=== PATIENT | male | born 1960 | race Hispanic/Latino ===

== ENCOUNTER 2020-04-22 17:14 | Inpatient (IN) | payer SELFPAY ==
[~2020-04-22] VITALS: Ht 157.5 cm; Wt 60.4 kg
[2020-04-22 18:55] VITALS: BP 135/79
[2020-04-22 20:13] LABS: HEMATOCRIT 41.8 % (42-54); MEAN CORPUSCULAR HEMOGLOBIN 28.1 pg (27.0-33.0); MEAN CORPUSCULAR HGB CONC 33.3 g/dL (32.0-36.0); MEAN CORPUSCULAR VOLUME 84.6 fL (79-99); RED BLOOD CELL COUNT(AUTO) 4.94 MIL/uL (4.50-6.20); WHITE BLOOD COUNT (AUTO) 8.2 K/uL (4.8-10.8)
[2020-04-22 20:23] LABS: CREATININE 1.2 mg/dL (0.5-1.5); POTASSIUM 3.9 mmol/L (3.5-5.1)
[2020-04-22 20:25] LABS: INR 0.99 (0.85-1.15); PROTHROMBIN TIME 10.7 SEC (9.6-11.6)
[2020-04-22 20:27] LABS: ALBUMIN 3.3 g/dL (3.5-5.0); BILIRUBIN,TOTAL 0.4 mg/dL (0.2-1.0); MAGNESIUM 2.3 mg/dL (1.80-2.40); TOTAL PROTEIN, SERUM 6.6 g/dL (6.0-8.3)
[2020-04-22] MEDS ORDERED: ONDANSETRON HCL 4 MG/2 ML VIAL IV PRN (20:30)
[2020-04-22] MEDS ORDERED: HYDRALAZINE HCL 20 MG/ML VIAL IV PRN (20:30)
[2020-04-22] MEDS ORDERED: NITROGLYCERIN 0.4 MG SL TAB SL PRN (20:30)
[2020-04-22] MEDS ORDERED: LACTULOSE 20 GM/30 ML UDCUP PO PRN (20:30)
[2020-04-22] MEDS ORDERED: MORPHINE SULFATE 2 MG/ML 1ML SYG IV PRN (20:30)
[2020-04-22] MEDS ORDERED: ACETAMINOPHEN 325 MG TAB PO PRN ×2 (20:30)
[2020-04-22 21:16] LABS: TROPONIN I 0.57 ng/mL (0.00-0.06)
[2020-04-22 21:24] LABS: HEMOGLOBIN A1C 5.7 % (4.0-6.0)
[2020-04-22] MEDS: FAMOTIDINE 20MG TAB 20 MG TAB PO SCH (21:36)
[2020-04-22] MEDS: SODIUM CHLORIDE 0.9% 1000ML 1,000 ML IV SCH (22:51)
[2020-04-23 01:09] VITALS: BP 119/73
[2020-04-23 06:10] VITALS: BP 112/69
[2020-04-23 08:30] VITALS: BP 119/74
[2020-04-23] MEDS: FAMOTIDINE 20MG TAB 20 MG TAB PO SCH ×2 (08:56→20:32)
[2020-04-23] MEDS: SODIUM CHLORIDE 0.9% 1000ML 1,000 ML IV SCH (08:57)
[2020-04-23] MEDS ORDERED: ASPIRIN 81MG TAB.CHEW PO SCH (09:00)
[2020-04-23] MEDS ORDERED: CLOPIDOGREL BISULFATE 75 MG TAB PO SCH (09:00)
--- NOTE | 2020-04-23 10:58 | NUR ---
DR. FOWLER IN ROOM SPEAKING WITH PT.
[2020-04-23 11:00] VITALS: BP 116/75
[2020-04-23] MEDS ORDERED: NITROGLYCERIN 2 MG/VIAL VIAL IV ONE (14:21)
[2020-04-23] MEDS ORDERED: HEPARIN SODIUM 1000UNIT/ML 10ML VIAL ONE (14:21)
[2020-04-23] MEDS ORDERED: NICARDIPINE HCL 25 MG/10 ML ML IV ONE (14:21)
[2020-04-23] MEDS ORDERED: LIDOCAINE HCL 2% 20ML ONE (14:22)
[2020-04-23] MEDS ORDERED: IOHEXOL-350 50ML VIAL IV ONE (14:22)
[2020-04-23] MEDS ORDERED: FENTANYL CITRATE PF 50 MCG/1 ML 2ML VIAL ONE (14:22)
[2020-04-23] MEDS ORDERED: IOHEXOL 350 MG/ML 100ML INFUS..BTL IV ONE (14:22)
[2020-04-23] MEDS ORDERED: MIDAZOLAM HCL 1 MG/ML 2ML VIAL ONE (14:22)
--- NOTE | 2020-04-23 15:52 | NUR ---
RETURNED TO ROOM VIA BED ACCOMPANIED BY Nick KRISHNAN RN. PT. AAOX3, RESP.'S EVEN AND UNLABORED. DENIES ANY C/O AT THIS TIME. TR BAND IN PLACE TO RIGHT WRIST AREA. RIGHT DIGITS WITH GOOD CMS; CAPILLARY REFILL LESS THAN 3 SECONDS. INSTRUCTED PT. TO CALL FOR ANY BLEEDING OR HEMATOMA NOTED TO RIGHT WRIST AREA OR ANY NUMBNESS OR TINGLING, VERBALIZED UNDERSTANDING. BED LOW, SIDE RAILS UP X3. CALL LIGHT WITHIN REACH, VERBALIZED ABILITY TO USE.
[2020-04-23] MEDS ORDERED: SODIUM CHLORIDE 0.9% 1000ML 1,000 ML IV SCH (17:00)
--- NOTE | 2020-04-23 17:00 | NUR ---
2 ML AIR REMOVED FROM WRIST BAND RIGHT RADIAL ARTERY. NO BLEEDING, HEMATOMA OR NUMBNESS NOTED. WILL CONTINUE TO MONITOR.
--- NOTE | 2020-04-23 19:00 | NUR ---
WRIST BAND REMOVED PER DR PERKINS ORDERS. NO BLEEDING, NUMBNESS OR HEMATOMA NOTED.
[2020-04-23 20:00] VITALS: BP 135/76
[2020-04-23] MEDS ORDERED: ATORVASTATIN CALCIUM 20 MG TABLET PO SCH (21:00)
[2020-04-23 23:33] VITALS: BP 124/76
[2020-04-24] VITALS (12 sets, daily range): BP systolic 95–122; BP diastolic 59–84
[2020-04-24] MEDS: FAMOTIDINE 20MG TAB 20 MG TAB PO SCH ×2 (07:53→20:19)
[2020-04-24] MEDS ORDERED: ISOPROTERENOL HCL 0.2 MG/ML AMP/VIAL/BAG ONE (09:49)
[2020-04-24] MEDS ORDERED: MIDAZOLAM HCL 1 MG/ML 2ML VIAL ONE ×4 (09:49→13:28)
[2020-04-24] MEDS ORDERED: HEPARIN SODIUM 1000UNIT/ML 10ML VIAL ONE (09:49)
[2020-04-24] MEDS ORDERED: LIDOCAINE HCL 2% 20ML ONE (09:49)
[2020-04-24] MEDS ORDERED: MEPERIDINE-PF 25 MG/ML SYG ONE ×4 (09:49→13:28)
--- NOTE | 2020-04-24 09:53 | NUR ---
TO DATA TECHNICIAN VIA BED ACCOMPANIED BY Bruce VAZQUEZ RN.
[2020-04-24] MEDS ORDERED: ADENOSINE 3 MG/ML 2ML VIAL IV ONE (10:34)
[2020-04-24] MEDS ORDERED: PROTAMINE SULFATE 10 MG/ML 25ML VIAL IV ONE (13:40)
[2020-04-24] MEDS ORDERED: ASPI-891 PO (13:55)
[2020-04-24] MEDS ORDERED: ASPIRIN 325MG EC TAB 325 MG TABLET.DR PO SCH (14:00)
--- NOTE | 2020-04-24 14:35 | NUR ---
RETURNED TO ROOM VIA BED ACCOMPANIED BY Bruce VAZQUEZ RN. PT. AAOX3, RESP.'S EVEN AND UNLABORED. DENIES ANY C/O SOB, DENIES ANY CURRENT PAIN. BILATERAL GROINS WITH LIGHT DRSG'S IN PLACE, D/I; AREAS SOFT, NO ECCHYMOSIS OR HEMATOMA NOTED. INSTRUCTED PT. ON STRICT BR PER MD ORDERS, VERBALIZED UNDERSTANDING. BED PLACED IN REVERSE [place] POSITION. SIDE RAILS UP. CALL LIGHT WITHIN REACH, VERBALIZED ABILITY TO USE. ROOM DOOR OPEN.
--- NOTE | 2020-04-24 15:34 | NUR ---
RECEIVED CALL FROM PT.'S SPOUSE, MERCEDES GALLOWAY, UPDATED ON STATUS AND QUESTIONS ANSWERED; VERBALIZED UNDERSTANDING.
--- NOTE | 2020-04-24 18:12 | NUR ---
BR COMPLETED. BILATERAL GROINS SOFT, NO ECCHYMOSIS OR HEMATOMA NOTED. ALLOWED UP IN BED. CALL LIGHT WITHIN REACH.
[2020-04-25 04:03] VITALS: BP 115/68
[2020-04-25 05:35] LABS: BASOPHILS % (AUTO) 0.4 % (0.0-5.0); EOSINOPHILS % (AUTO) 1.5 % (0.0-8.0); HEMATOCRIT 37.9 % (42-54); LYMPHOCYTES % (AUTO) 14.8 % (21.0-51.0); MEAN CORPUSCULAR HEMOGLOBIN 27.6 pg (27.0-33.0); MEAN CORPUSCULAR HGB CONC 33.2 g/dL (32.0-36.0); MEAN CORPUSCULAR VOLUME 83.1 fL (79-99); MONOCYTES % (AUTO) 6.9 % (3.0-13.0); NEUTROPHILS % (AUTO) 75.8 % (40.0-77.0); PLATELET COUNT (AUTO) 225 K/uL (130-400); RED BLOOD CELL COUNT(AUTO) 4.56 MIL/uL (4.50-6.20); RED CELL DISTRIBUTION WIDTH 12.3 % (11.0-15.5); WHITE BLOOD COUNT (AUTO) 8.2 K/uL (4.8-10.8)
[2020-04-25 05:59] LABS: BILIRUBIN,TOTAL 0.6 mg/dL (0.2-1.0); CREATININE 0.9 mg/dL (0.5-1.5); TOTAL PROTEIN, SERUM 6.3 g/dL (6.0-8.3)
[2020-04-25] MEDS: FAMOTIDINE 20MG TAB 20 MG TAB PO SCH (07:23)
--- NOTE | 2020-04-25 08:00 | NUR ---
ASSESSMENT PT IS AAOX3 DENIES CP DENIES SOB DENIES NV NO COMPLAINTS RESTING IN BED. AM MEDS GIVEN AND TOLERATED, SITTING UPRIGHT IN BED, EATING BREAKFAST. BILATERAL GROINS CLEAN DRY AND INTACT.
[2020-04-25] MEDS ORDERED: ASPIRIN 325MG EC TAB 325 MG TABLET.DR PO SCH (09:00)
[2020-04-25 09:28] VITALS: BP 142/79
[2020-04-25 11:20] VITALS: BP 129/78
--- NOTE | 2020-04-25 12:08 | NUR ---
DISCHARGE INSTRUCTIONS GIVEN TO PATIENT ALL QUESTIONS ANSWERED, PIV REMOVED CATH TIP INTACT TELE PACK REMOVED. AGREES TO TAKE MEDICATION ORDERED AGREES TO FOLLOW UP WITH DR MOORE ORDERED. AWAITING RIDE.
== END 2020-04-25 12:20 | disposition home or self-care (01) | DRG 274 ==
LOC: 4CH 18:55
PROVIDERS: ADMIT Hospitalist; ATTEND Hospitalist
PROC: 4A023N7 Measurement of Cardiac Sampling and Pressure, Left Heart, Percutaneous Approach (ICD-10-PCS; principal; 2020-04-23)
PROC: B2161ZZ Fluoroscopy of Right and Left Heart using Low Osmolar Contrast (ICD-10-PCS; 2020-04-23)
PROC: 02583ZZ Destruction of Conduction Mechanism, Percutaneous Approach (ICD-10-PCS; 2020-04-23)
PROC: 5A2204Z Restoration of Cardiac Rhythm, Single (ICD-10-PCS; 2020-04-23)
PROC: 4A02X4Z Measurement of Cardiac Electrical Activity, External Approach (ICD-10-PCS; 2020-04-23)
DX: I21.4 Non-ST elevation (NSTEMI) myocardial infarction (principal); I47.1 Supraventricular tachycardia; I20.0 Unstable angina; I10 Essential (primary) hypertension; I45.6 Pre-excitation syndrome
CPT/HCPCS: 36415; 71045; 80053; 80061; 82550; 83036; 83735; 83874; 84484; 85025; 85027; 85610; 93005; 93306; 93356; 93458; 93462; 93613; 93621; 93623; 93653; 93655; 93662; 99156; 99157; C1730; C1769; C1893; C1894; G0378; J0153; J1644; J2175; J2250; J2720; J3010; J3490; Q9967